=== PATIENT | female | born 1970 | race Caucasian/White ===

== ENCOUNTER 2020-09-02 12:55 | Inpatient (IN) | payer OTHER ==
[2020-09-02 14:25] LABS: HEMATOCRIT 17.8 % (32.4-45.2); HEMOGLOBIN 5.3 GM/dl (10.7-15.3); MCH 20.1 pg (25.7-33.7); MCHC 29.7 g/dl (32.0-36.0); MEAN CELL VOLUME 67.9 fl (80-96); MEAN PLT VOLUME 8.6 fl (7.5-11.1); PLATELET COUNT 362 K/MM3 (134-434); RBC 2.63 M/mm3 (3.60-5.2); RDW 17.3 % (11.6-15.6); WHITE BLOOD COUNT 5.1 K/mm3 (4.0-10.8)
[2020-09-02 14:27] LABS: ALBUMIN 3.8 g/dl (3.4-5.0); BILIRUBIN,TOTAL 0.3 mg/dl (0.2-1); CALCIUM 8.5 mg/dl (8.5-10); CREATININE 0.8 mg/dl (0.55-1.3); PHOSPHOROUS 3.6 mg/dl (2.5-4.9); TOT PROT 7.2 g/dl (6.4-8.2)
[2020-09-02 14:41] LABS: INR 1.14 (0.82-1.09); PROTHROMBIN TIME (PATIENT) 12.7 SEC (10.2-13.0)
[2020-09-02 14:48] LABS: ACTIVATED PTT 25.4 SECONDS (25.2-36.5)
[2020-09-02 15:26] LABS: ANISOCYTOSIS 2+; TARGET CELLS 2+
[2020-09-02 15:54] LABS: N-TERMINAL BNP 277.6 pg/ml (5-125)
[2020-09-02] MEDS ORDERED: THIAMINE HCL 100 MG TABLET (FP) PO ONE (18:23)
[2020-09-02 20:07] VITALS: BMI 26.4
[2020-09-02] MEDS ORDERED: FOLIC ACID 1 MG TABLET (FP) PO ONE (20:45)
[2020-09-02] MEDS ORDERED: CYANOCOBALAMIN 1,000 MCG TABLET (FP) PO ONE (21:00)
[2020-09-03 08:12] LABS: BASO % 2.1 % (0-2.0); EOS % 16.7 % (0-4.5); HEMATOCRIT 23.2 % (32.4-45.2); HEMOGLOBIN 7.2 GM/dl (10.7-15.3); LYMPH % 27.8 % (8-40); MEAN CELL VOLUME 74.3 fl (80-96); MONO % 7.3 % (3.8-10.2); NEUT % 46.1 % (42.8-82.8); PLATELET COUNT 323 K/MM3 (134-434); RBC 3.12 M/mm3 (3.60-5.2); RDW 21.9 % (11.6-15.6); WHITE BLOOD COUNT 4.6 K/mm3 (4.0-10.8)
[2020-09-03 08:15] LABS: ALBUMIN 3.1 g/dl (3.4-5.0); BILIRUBIN,TOTAL 0.5 mg/dl (0.2-1); CALCIUM 8.3 mg/dl (8.5-10); CREATININE 0.6 mg/dl (0.55-1.3); MAGNESIUM 1.8 mg/dL (1.8-2.4); PHOSPHOROUS 3.1 mg/dl (2.5-4.9); TOT PROT 5.9 g/dl (6.4-8.2)
[2020-09-03] MEDS ORDERED: FOLIC ACID 1 MG TABLET (FP) PO SCH (10:00)
[2020-09-03] MEDS ORDERED: CYANOCOBALAMIN (VITAMIN B-12) 100 MCG TABLET PO SCH (10:00)
[2020-09-03] MEDS ORDERED: THIAMINE HCL 100 MG TABLET (FP) PO SCH (10:00)
[2020-09-03] MEDS ORDERED: IRON SUCROSE INJECTION 300 MG in SODIUM CHLORIDE 235 ML IVPB ONE (10:38)
[2020-09-03] MEDS ORDERED: FE POLYSAC/CYANOCOBAL/FA COMBO CAPSULE PO SCH (10:45)
[2020-09-03] MEDS ORDERED: ALPRAZolam 1 MG TABLET PO PRN (14:02)
[2020-09-03] MEDS ORDERED: LISINOPRIL 10 MG TABLET PO SCH (15:45)
[2020-09-03 18:13] VITALS: BP 141/86; PULSE 89; TEMP 98.4
[2020-09-03 19:08] LABS: HEMATOCRIT 28.1 % (32.4-45.2); HEMOGLOBIN 9.2 GM/dl (10.7-15.3); MCH 24.9 pg (25.7-33.7); MCHC 32.7 g/dl (32.0-36.0); MEAN CELL VOLUME 76.1 fl (80-96); MEAN PLT VOLUME 8.2 fl (7.5-11.1); PLATELET COUNT 331 K/MM3 (134-434); RBC 3.69 M/mm3 (3.60-5.2); RDW 22.7 % (11.6-15.6); WHITE BLOOD COUNT 7.5 K/mm3 (4.0-10.8)
[2020-09-04] MEDS ORDERED: BENAZEPRIL HCL 10 MG PO SCH (10:00)
== END 2020-09-03 20:16 | disposition home or self-care (01) | DRG 663 ==
LOC: FER 12:55 → FM/S 19:25
PROVIDERS: ADMIT Internal Medicine; ATTEND Nurse Practitioner Family
PROC: 30233N1 Transfusion of Nonautologous Red Blood Cells into Peripheral Vein, Percutaneous Approach (ICD-10-PCS; principal; 2020-09-02)
DX: D50.9 Iron deficiency anemia, unspecified (principal); J45.909 Unspecified asthma, uncomplicated; I10 Essential (primary) hypertension; D25.9 Leiomyoma of uterus, unspecified; N92.0 Excessive and frequent menstruation with regular cycle; F41.9 Anxiety disorder, unspecified; G47.30 Sleep apnea, unspecified; E88.09 Other disorders of plasma-protein metabolism, not elsewhere classified; E46 Unspecified protein-calorie malnutrition; E56.9 Vitamin deficiency, unspecified; E51.11 Dry beriberi
CPT/HCPCS: 36415; 36430; 71045-TC-FY; 80053; 82136; 82550; 82553; 82607; 82728; 82746; 83540; 83550; 83735; 83880; 83918; 84100; 84443; 84484; 85025; 85027; 85610; 85730; 86922; 93005; 99285-25; C9803; J1756; P9058; U0003; U0005

== ENCOUNTER 2024-01-01 17:03 | Emergency (ER) | payer OTHER ==
[2024-01-01 17:19] VITALS: BP 136/75; PULSE 87; RESP 16; TEMP 97.7; BMI 28.3
[2024-01-01 18:17] LABS: HEMATOCRIT 30.9 % (32.4-45.2); HEMOGLOBIN 9.5 G/dL (10.7-15.3); MCH 25.8 pg (25.7-33.7); MCHC 30.7 g/dl (32.0-36.0); MEAN CELL VOLUME 84.2 fl (80-96); MEAN PLT VOLUME 8.5 fl (7.5-11.1); PLATELET COUNT 424.2 10^3/uL (134-434); RBC 3.67 10^6/uL (3.60-5.2); WHITE BLOOD COUNT 8.2 10^3/uL (4.0-10.8)
[2024-01-01 18:27] LABS: INR 0.88 (0.83-1.09); PROTHROMBIN TIME (PATIENT) 10.1 SEC (9.7-13.0)
[2024-01-01 18:29] LABS: PLATELET ESTIMATE ADEQUATE
[2024-01-01 18:38] LABS: ALBUMIN 3.8 g/dl (3.4-5.0); BILIRUBIN,TOTAL 0.2 mg/dl (0.2-1); CALCIUM 8.7 mg/dl (8.5-10.1); CREATININE 0.8 mg/dl (0.6-1.3); TOT PROT 6.4 g/dl (6.4-8.2)
[2024-01-01 22:09] LABS: HIV INTERPRETATION NEGATIVE (NEGATIVE)
== END 2024-01-01 19:01 | disposition home or self-care (01) ==
LOC: FER 17:03
DX: D50.9 Iron deficiency anemia, unspecified (principal); H53.8 Other visual disturbances; R53.83 Other fatigue
CPT/HCPCS: 36415; 80053; 82728; 83540; 83550; 85027; 85610; 85730; 86803; 87389; 99283-25